=== PATIENT | female | born 1945 | race Caucasian/White ===

== ENCOUNTER → 2017-11-02 16:06 | Outpatient (CLI) | payer MEDICARE ==
[2011-11-10 12:16] VITALS: BMI 30.4
== END | disposition home or self-care (01) ==
LOC: D.RAD 16:06
DX: J01.90 Acute sinusitis, unspecified (principal)

== ENCOUNTER → 2018-01-12 10:22 | Outpatient (CLI) | payer MEDICARE ==
[2011-11-10 12:16] VITALS: BMI 30.4
== END | disposition home or self-care (01) ==
LOC: D.CT 10:22 → D.US 11:30
DX: I73.9 Peripheral vascular disease, unspecified (principal); R06.09 Other forms of dyspnea

== ENCOUNTER → 2018-01-28 09:23 | Outpatient (CLI) | payer MEDICARE ==
[2011-11-10 12:16] VITALS: BMI 30.4
== END | disposition home or self-care (01) ==
LOC: D.CT 09:23
DX: I73.9 Peripheral vascular disease, unspecified (principal)